=== PATIENT | male | born 1990 | race Caucasian/White ===

== ENCOUNTER 2018-08-15 09:08 | Emergency (ER) | payer OTHER ==
[~2018-08-15] VITALS: Ht 172.7 cm; Wt 72.6 kg
--- NOTE | 2018-08-15 09:18 | NUR ---
PT AMBULATED TO ER BED 04
[2018-08-15 09:21] VITALS: BP 160/92
--- NOTE | 2018-08-15 09:29 | NUR ---
pt ambulates to bed 4 with c/o right flank pain x this am denies hematuria hx--nepholithiasis rx---none
[2018-08-15] MEDS ORDERED: NACL 0.9% 1,000 ML IV SCH (09:32)
[2018-08-15] MEDS ORDERED: NACL 0.9% 1,000 ML IV ONE (09:32)
[2018-08-15] MEDS ORDERED: ONDANSETRON 4 MG/2 ML VIAL IVP ONE (09:35)
[2018-08-15] MEDS ORDERED: PROMETHAZINE 25 MG/ML VIAL IM ONE (09:35)
[2018-08-15] MEDS ORDERED: MORPHINE SULFATE 4 MG/ML SYR IVP ONE (09:35)
[2018-08-15] MEDS ORDERED: KETOROLAC 30 MG/ML VIAL IVP ONE (09:35)
--- NOTE | 2018-08-15 10:07 | NUR ---
pt taken off the unit to ct scan via gurney by application architect manager Linette
[2018-08-15 10:28] LABS: BASOPHILS % (AUTO) 0.5 % (0.0-2.0); EOSINOPHILS # (AUTO) 0.2 K/uL (0-0.4); EOSINOPHILS % (AUTO) 2.5 % (0.0-4.0); HEMATOCRIT 47.7 % (36-52); HEMOGLOBIN 16.1 g/dL (12.0-18.0); LYMPHOCYTES # (AUTO) 2.6 K/uL (2.0-11.5); LYMPHOCYTES % (AUTO) 32.3 % (20.5-51.1); MEAN CORPUSCULAR HEMOGLOBIN 30 pg (27-31); MEAN CORPUSCULAR HGB CONC 34 g/dL (33-37); MEAN CORPUSCULAR VOLUME 89.4 fL (80-94); MONOCYTES # (AUTO) 0.6 K/uL (0.8-1.0); MONOCYTES % (AUTO) 8.1 % (1.7-9.3); NEUTROPHILS # (AUTO) 4.5 K/uL (1.8-7.7); NEUTROPHILS % (AUTO) 56.6 % (42.2-75.2); PLATELET COUNT (AUTO) 229 K/uL (140-450); RED BLOOD CELL COUNT(AUTO) 5.34 MIL/uL (4.20-6.10); RED CELL DISTRIBUTION WIDTH 12.9 % (11.6-13.7); WHITE BLOOD COUNT (AUTO) 7.9 K/uL (4.8-10.8)
[2018-08-15 10:44] LABS: ANION GAP 14.3 (8-16); CARBON DIOXIDE 25.6 mmol/L (21-32); CREATININE 1.1 mg/dL (0.7-1.3); POTASSIUM 3.9 mmol/L (3.5-5.1)
[2018-08-15 10:50] LABS: ALBUMIN 4.2 g/dL (3.4-5.0); TOTAL BILIRUBIN 0.6 mg/dL (0.0-1.0)
--- NOTE | 2018-08-15 10:59 | NUR ---
pt resting comfortably at this time vss no c/o pain
[2018-08-15 11:07] LABS: APPEARANCE,URINE CLEAR (CLEAR); COLOR,URINE YELLOW (YELLOW); UGLUCOSE NEGATIVE (NEGATIVE)
[2018-08-15 11:08] LABS: BILIRUBIN,URINE NEGATIVE (NEGATIVE); BLOOD, URINE 1+ (NEGATIVE); LEUKOCYTE ESTERASE ,URINE NEGATIVE (NEGATIVE); NITRITE, URINE NEGATIVE (NEGATIVE)
[2018-08-15 11:27] LABS: RBC,URINE 3-10 (FEW) /HPF (0-5); WBC,URINE 0-5 (RARE) /HPF (0-5)
[2018-08-15 12:15] VITALS: BP 136/89
--- NOTE | 2018-08-15 12:15 | NUR ---
Patient discharged with v/s stable. Written and verbal after care instructions given and explained. Patient alert, oriented and verbalized understanding of instructions. Ambulatory with steady gait. All questions addressed prior to discharge. ID band removed. Patient advised to follow up with PMD. Rx of flomax, tramadol given. Patient educated on indication of medication including possible reaction and side effects. Opportunity to ask questions provided and answered.
== END 2018-08-15 12:15 | disposition home or self-care (01) ==
LOC: MED 09:08
DX: N13.2 Hydronephrosis with renal and ureteral calculous obstruction (principal)
CPT/HCPCS: 36415; 74176; 80053; 81001; 82150; 83690; 85025; 87086; 96361; 96374; 96375; 99285; J1885; J2270; J2405; J2550; J7030

== ENCOUNTER 2019-10-28 12:40 | Emergency (ER) | payer OTHER ==
[~2019-10-28] VITALS: Ht 175.3 cm; Wt 77.1 kg
[2019-10-28 12:46] VITALS: BP 145/95
--- NOTE | 2019-10-28 13:24 | NUR ---
PT AMBULATED TO ER BED 09
--- NOTE | 2019-10-28 13:54 | NUR ---
PT BIB SELF C/O BILATERAL EYE REDNESS/IRRITATION X 1 WEEK SEEN IN URGENT CARE GIVEN RX FOR CIPRO DX WITH CONJUCTIVITIS. NO RELIEF WITH ABX. PT DENIES N/V/D; SKIN IS INTACT, PINK/WARM/DRY; AAOX4, PERRL, WITH EVEN AND STEADY GAIT; LUNGS CLEAR BL, BREATHING UNLABORED; HR EVEN AND REGULAR, BL PERIPHERAL PULSES PRESENT; BS ACTIVE X4, NO TENDERNESS TO PALPATION. PT DENIES ANY FEVER, CP, SOB, OR COUGH AT THIS TIME; PT STATES 5/10 PAIN AT THIS TIME; VSS; PATIENT POSITIONED FOR COMFORT; HOB ELEVATED; BEDRAILS UP X2; BED DOWN.
[2019-10-28] MEDS ORDERED: FLUORESCEIN OPTH STRIP 1 MG OP ONE ×2 (13:55→14:05)
[2019-10-28] MEDS ORDERED: TETRACAINE HCL/PF 0.5% OPTH 4 ML BTL OP ONE (13:55)
--- NOTE | 2019-10-28 14:01 | NUR ---
2 STRIPS AND TETRICAINE AT BEDSIDE FOR PA GARRETT
--- NOTE | 2019-10-28 14:13 | NUR ---
SANYA GARRETT AT BEDSIDE
[2019-10-28 14:38] VITALS: BP 129/83
--- NOTE | 2019-10-28 14:38 | NUR ---
Patient discharged with v/s stable. Written and verbal after care instructions given and explained REGARDING CONJECTIVITIS. Patient verbalized understanding. Ambulatory with steady gait. All questions addressed prior to discharge. Advised to follow up with [facility]
== END 2019-10-28 14:38 | disposition home or self-care (01) ==
LOC: MED 12:40
DX: H10.9 Unspecified conjunctivitis (principal); H04.203 Unspecified epiphora, bilateral
CPT/HCPCS: 99283